=== PATIENT | female | born 1945 | race Caucasian/White ===

== ENCOUNTER 2017-09-16 16:32 | Emergency (ER) | payer OTHER ==
--- NOTE | 2017-09-16 17:02 | EDPHY ---
H & P Stated Complaint: ETOH Source: Patient, Family () Exam Limitations: Intoxication - Personal History Current Tetanus/Diphtheria Vaccine: Yes Current Tetanus Diphtheria and Acellular Pertussis (TDAP): Yes - Medical/Surgical History Hx Asthma: No Hx Chronic Respiratory Disease: No Hx Diabetes: No Hx Cardiac Disease: No Hx Renal Disease: No Hx Cirrhosis: No Hx Alcoholism: Yes Hx HIV/AIDS: No Hx Splenectomy or Spleen Trauma: No Other PMH: ETOH, Depression, HTN - Social History Smoking Status: Unknown if ever smoked Time Seen by Provider: 09/16/17 17:02 HPI/ROS: HPI: Is a 72-year-old female who presents with Chief Complaint: Alcohol intoxication Location: Body Quality: Alcohol intoxication Duration: Several months Signs and Symptoms: Denies homicidal ideation, + passive suicidal thoughts without a plan, no hallucinations, + insomnia, + brief, + anhedonia, excessive crying spells Timing: Worsening Severity: Moderate to severe Context: Patient was a social drinker until 3-4 months ago when her son was diagnosed with sarcoidosis and her of 50 years was diagnosed with Parkinson's disease. She reports that she starts to drink in the afternoon and until bed. She admits to large amounts of wine, chin, beer. She admits to drinking to suppress her feelings as she is unable to deal with her problems. She supports that she feels increased stress and has difficulty coping with it. Her is a recovering alcoholic and is still sober. He attends regular AA meeting. She is here in the emergency room asking for help. Modifying Factors: None Comment: ROS: see HPI Constitutional: No fever, no chills, no weight loss Eyes: No blurred vision Respiratory: No shortness of breath, no cough Cardiovascular: No chest pain Gastrointestinal: No nausea, no vomiting, no diarrhea Genitourinary: No dysuria Extremities: No myalgias Neurologic: No weakness, no numbness Skin: No rashes Hematologic: No bruising, no bleeding MEDICAL/SURGICAL/SOCIAL HISTORY: Medical history: ETOH, Depression, HTN Surgical history: Denies Social history: 50 years. CONSTITUTIONAL: pleasant elderly white female who is clearly intoxicated and tearful at times, wake and alert, no obvious distress HEENT: Atraumatic and normocephalic, PERRL, EOMI. Tympanic membranes clear. Oropharynx clear, no exudate and moist pink mucosa. Airway patent. No lymphadenopathy. No meningismus. Cardiovascular: Normal S1/S2, regular rate, regular rhythm, without murmur rub or gallop. PULMONARY/CHEST: Symmetrical and nontender. Clear to auscultation bilaterally. Good air movement. No accessory muscle usage. ABDOMEN: Soft, nondistended, nontender, no rebound, no guarding, no peritoneal signs, no masses or organomegaly. No CVAT. EXTREMITIES: 2/2 pulses, strength 5/5, no deformities, no clubbing, no cyanosis or edema. NEUROLOGICAL: no focal neuro deficits. GCS 15. Mild slurring of words. Follows 2 step commands. SKIN: Warm and dry, no erythema. no rash. Good capillary refill. PSYCH: Good eye contact, no flight of ideas, organized thought process, fairly good insight and judgment, no auditory and visual command hallucinations, + + suicidal ideation with no plan, no homicidal ideation, not paranoid (Maylin,Terra) Constitutional: Initial Vital Signs Temperature (C) 36.2 C 09/16/17 16:32 Heart Rate 96 09/16/17 16:32 Respiratory Rate 14 09/16/17 16:32 Blood Pressure 122/77 H 09/16/17 16:32 O2 Sat (%) 100 09/16/17 16:32 O2 Delivery Mode Room Air Allergies/Adverse Reactions: No Known Allergies Allergy (Unverified 09/16/17 16:52) Home Medications: Medication Instructions Recorded FLUoxetine 09/16/17 Lisinopril 09/16/17 Medical Decision Making ED Course/Re-evaluation: Patient is clinically is depressed, drinking excessively and having passive suicidal ideations. She was placed on a detainer. She is currently calm and cooperative. Voluntarily seeking help. at bedside. Labs, UDS ordered 1824: Labs reviewed and grossly unremarkable. Ethanol is 402. UDS negative. 1950: breathalyzer 0.195 2054: Reassessed patient. She refers denies suicidal ideations and reports that she wants help for alcohol abuse. After further questioning, patient breaks down becomes tearful admits that she still is going to drink, needs help , and then further admits that she has been thinking of ways that she can and her life when her is not around. Patient would benefit from mental health evaluation. 2320: breath 0.126 00:14: TLC at bedside for evaluation. 0110: End of shift. Signed over to Dr. Hanley pending final recommendation from [facility]LC and disposition. Patient remains calm and cooperative. (Margaret Carlisle) 4:30 a.m.- The patient continues to remain stable. TLC evaluated the patient and would like to obtain some collateral information from the patient's family. She has been unable to reach anyone at this hour. She would like to keep the patient in the emergency department until the morning to reach some of the patient's family and to consult with [facility] about the patient's case and disposition. 6:30 a.m.- We are still awaiting additional information from patient's family at this time. She will be signed out to the oncoming provider at 7:00 a.m., Dr. Reinoso , pending completion of her mental health evaluation. (Saige Hanley) Differential Diagnosis: Differential diagnosis includes but is not limited to functional in situational depression, grief reaction, poor coping mechanisms, suicidal ideation, substance abuse. (Margaret Carlisle) - Data Points Laboratory Results: Laboratory Results 09/16/17 16:32 09/16/17 16:32 Departure - Departure Clinical Impression: Alcohol abuse, Severe major depression Alcohol intoxication Qualifiers: Complication of substance-induced condition: uncomplicated Qualified Code(s): F10.920 - Alcohol use, unspecified with intoxication, uncomplicated Referrals: WALT BLACKMON [Primary Care Provider] - As per Instructions
[2017-09-16 17:22] LABS: % IMMATURE GRANULYOCYTES 0.3 % (0.0-1.1); ABSOLUTE IMMATURE GRANULOCYTES 0.03 10^3/uL (0.00-0.10); ADD DIFF? NO; ADD MORPH? NO; ADD SCAN? NO; ATYPICAL LYMPHOCYTE FLAG 0 (0-99); FRAGMENT RBC FLAG 0 (0-99); HEMATOCRIT 45.9 % (38.0-47.0); HEMOGLOBIN 15.7 g/dL (12.6-16.3); LEFT SHIFT FLG 0 (0-99); LIPEMIA HEMOLYSIS FLAG 90 (0-99); MEAN CELL HEMOGLOBIN 32.2 pg (27.9-34.1); MEAN CELL HEMOGLOBIN CONCENTR. 34.2 g/dL (32.4-36.7); MEAN CELL VOLUME 94.3 fL (81.5-99.8); MEAN PLATELET VOLUME 10.1 fL (8.7-11.7); PLATELET CLUMPS FLAG 10 (0-99); PLATELET COUNT 342 10^3/uL (150-400); RED BLOOD CELL COUNT 4.87 10^6/uL (4.18-5.33); RED CELL DISTRIBUTION WIDTH 14.1 % (11.5-15.2)
[2017-09-16 18:00] LABS: ANION GAP 23 mEq/L (8-16); CALCIUM 10.2 mg/dL (8.5-10.4); CARBON DIOXIDE 18 mEq/l (22-31); CHLORIDE 105 mEq/L (97-110); CREATININE 0.7 mg/dL (0.6-1.0); GLOMERULAR FILTRATION RATE > 60; GLUCOSE 77 mg/dL (70-100); POTASSIUM 4.1 mEq/L (3.5-5.2); SODIUM 146 mEq/L (134-144)
[2017-09-16 18:19] LABS: ETHANOL SERUM 402 mg/dL (0-10)
[2017-09-17 01:30] VITALS: TEMP 98.2
[2017-09-17 08:04] VITALS: BP 166/65; PULSE 95; RESP 18; O2SAT 94
== END 2017-09-17 08:43 | disposition home or self-care (01) ==
LOC: EDBD 16:32
DX: F10.920 Alcohol use, unspecified with intoxication, uncomplicated (principal); F32.2 Major depressive disorder, single episode, severe without psychotic features; I10 Essential (primary) hypertension
CPT/HCPCS: 80305; G0480